=== PATIENT | female | born 1970 | race Caucasian/White ===

== ENCOUNTER → 2017-10-09 | Outpatient (CLI) | payer BC | END | disposition home or self-care (01) | LOC: C.PAPS 14:14 | PROVIDERS: ATTEND Obstetrics & Gynecology | DX: Z01.419 Encounter for gynecological examination (general) (routine) without abnormal findings (principal) ==

== ENCOUNTER → 2017-10-25 | Outpatient (CLI) | payer BC ==
--- NOTE | 2017-10-26 14:43 | MAMMOGRAPHY REPORT ---
BILATERAL FIRST EVER DIGITAL SCREENING MAMMOGRAM TOMOSYNTHESIS WITH CAD: 10/25/2017 CLINICAL HISTORY: Baseline examination. Patient has no complaints. TECHNIQUE: Breast tomosynthesis in addition to standard 2D mammography was performed. Current study was also evaluated with a Computer Aided Detection (CAD) system. COMPARISON: No prior exams were available for comparison. BREAST COMPOSITION: There are scattered areas of fibroglandular density in both breasts. FINDINGS: There are 2 focal asymmetries in the upper outer anterior and middle to posterior left yared ast that could represent normal fibroglandular tissue, although they are asymmetric comparing to the contralateral right breast and no priors are available for comparison. Additional spot compression t o the synthesis views and possible ultrasound are recommended. No other suspicious mass, architectural distortion or cluster of microcalcifications is seen. IMPRESSION: ACR BI-RADS CATEGORY 0: INCOMPLETE EVALUATION: NEED ADDITIONAL IMAGING EVALUATION The 2 focal asymmetries in the left upper outer quadrant need additional imaging evaluation. The patient will be called to schedule an appointment. Approximately 10% of breast cancers are not detected with mammography. A negative mammographic report should not delay biopsy if a clinically suggestive mass is present. Layla Canales M.D. ay/:10/25/2017 19:35:54 Magnetic Tape Winder: Lanie Karimi, [facility] letter sent: Addl Imaging 0 BI-RADS Code: ACR BI-RADS Category 0: Incomplete Evaluation: Need Additional Imaging Evaluation
== END | disposition home or self-care (01) ==
LOC: C.MAMM 14:27
PROVIDERS: ATTEND Obstetrics & Gynecology
DX: Z12.31 Encounter for screening mammogram for malignant neoplasm of breast (principal); N64.9 Disorder of breast, unspecified

== ENCOUNTER → 2017-11-14 | Outpatient (CLI) | payer BC ==
--- NOTE | 2017-11-14 15:37 | MAMMOGRAPHY REPORT ---
UNILATERAL LEFT DIGITAL DIAGNOSTIC MAMMOGRAM TOMOSYNTHESIS AND TARGETED LEFT ULTRASOUND: 11/14/2017 CLINICAL HISTORY: Callback from screening mammogram for left breast asymmetries. TECHNIQUE: Breast tomosynthesis in addition to standard 2D mammography was performed. Spot compress ion left CC and MLO 2D and tomosynthesis images were obtained. COMPARISON: Comparison is made to exam dated: 10/25/2017 mammogram - [facility]. BREAST COMPOSITION: There are scattered areas of fibroglandular density in the left breast. FINDINGS: The previously described focal asymmetry in the left upper outer quadrant posteriorly is le ss prominent on the spot compression view and has the appearance of fibroglandular tissue on the greg tional tomosynthesis images. The other asymmetry seen within the left upper outer quadrant anteriorl y also has the appearance of fibroglandular tissue on the tomosynthesis images. However, within the anterior asymmetry there is an oval partially circumscribed and partially obscured 13 mm mass on the CC tomosynthesis images for which ultrasound was performed. Targeted ultrasound was performed of the left upper outer quadrant in the region of the mammographic asymmetries. In the left breast at 1:00, 3 cm from the nipple, there is a lobulated circumscribed an echoic mass with a few thin internal septations, measuring 12 x 6 mm. This corresponds with the part ially circumscribed mammographic mass and is consistent with a benign cyst. An adjacent oval anechoi c benign cyst measuring 6 x 5 mm is also seen within the left 1:00 periareolar breast. No suspicious masses or other suspicious sonographic abnormalities were evident. IMPRESSION: ACR BI-RADS CATEGORY 2: BENIGN, TARGETED ULTRASOUND ACR BI-RADS CATEGORY 2: BENIGN Circumscribed 12 mm mass in the left 1:00 breast on ultrasound, which corresponds with a partially ci rcumscribed mammographic mass and is consistent with a benign cyst. The asymmetries within the left upper outer quadrant efface on the additional views, without corresponding suspicious sonographic abn ormalities evident. Findings are benign and felt to represent normal fibroglandular tissue. There is no mammographic or targeted sonographic evidence of malignancy. A 1 year screening mammogram is recommended. The patient has been verbally notified of the results. Approximately 10% of breast cancers are not detected with mammography. A negative mammographic report should not delay biopsy if a clinically suggestive mass is present. Aurelia Rosales M.D. ah/:11/14/2017 13:51:26 Property Condition Assessor: Diana FLORENCE)([place]), [facility] letter sent: Normal 1/2 BI-RADS Code: ACR BI-RADS Category 2: Benign Ultrasound BI-RADS: ACR BI-RADS Category 2: Benign
== END | disposition home or self-care (01) ==
LOC: C.MAMM 13:10
PROVIDERS: ATTEND Obstetrics & Gynecology
DX: R92.8 Other abnormal and inconclusive findings on diagnostic imaging of breast (principal); N63.20 Unspecified lump in the left breast, unspecified quadrant